=== PATIENT | male | born 1995 | race African-American/Black ===

== ENCOUNTER 2019-06-26 10:37 | Emergency (ER) | payer OTHER ==
[~2019-06-26] VITALS: Ht 175.3 cm; Wt 82.7 kg
[2019-06-26 10:40] VITALS: BP 136/74
== END 2019-06-26 10:59 | disposition left against medical advice (07) ==
LOC: EMS 10:45
DX: M79.632 Pain in left forearm (principal); Z53.21 Procedure and treatment not carried out due to patient leaving prior to being seen by health care provider